=== PATIENT | male | born 1985 | race Caucasian/White ===

== ENCOUNTER 2017-04-26 17:41 | Emergency (ER) | payer OTHER ==
[2017-04-26 19:33] LABS: Hematocrit 41 % (42-52); Hemoglobin 14.6 g/dl (14.0-18.0); Mean Corpuscular HGB Conc 35 g/dl (31-36); Mean Corpuscular Hemoglobin 32 pg (27-31); Mean Corpuscular Volume 90 fL (80-94); Mean Platelet Volume 7 um3 (7.4-10.4); Red Blood Count 4.62 10^6/ul (4.0-5.4); Red Cell Distribution Width 13 % (10.5-15); White Blood Count 12.1 10^3/ul (3.5-10.8)
[2017-04-26 19:45] LABS: Albumin 4.4 g/dL (3.2-5.2); Calcium 9.2 mg/dL (8.6-10.3); EGFR African American 121.1 (>60); EGFR Non-African American 94.2 (>60); Globulin 3.1 g/dL (2-4); Total Bilirubin 1.6 mg/dL (0.2-1.0); Total Protein 7.5 g/dL (6.4-8.9)
[2017-04-26 19:56] LABS: Urine Bacteria Absent (Absent); Urine Bilirubin Negative (Negative); Urine Glucose Negative (Negative); Urine Nitrite Negative (Negative)
[2017-04-26] MEDS ORDERED: NS 0.9% 1000 ML* 2,000 ML IV ONE (20:24)
[2017-04-26] MEDS ORDERED: Ketorolac INJ* 30 MG/ML 1 ML VIAL IV PUSH ONE (20:24)
--- NOTE | 2017-04-26 20:31 | ED ---
Abdominal Pain/Male - HPI Summary HPI Summary: 31 male presents to ED with complaints of LLQ abdominal pain that began yesterday and has not improved. Patient states over the weekend he was having URI symptoms that have improved for the most part however began having LLQ pain , nausea, and vomiting yesterday. Admits to fever/chills. Describes pain to be sharp and shooting, worse at times. States it does radiate into his back. Denies diarrhea, constipation. Normal bowel movements. No urinary or genitalia symptoms. No concern for STDs. No PMHX. Did take etta seltzer 2 days ago. Has not taken any medications since. States applying pressure on side when laying down helps diminish the pain somewhat. No other complaints. Denies chest pain and difficulty breathing. Has been eating and drinking. Never had pain like this before. Denies FHx. - History of Current Complaint Chief Complaint: EDAbdPain Stated Complaint: NAUSEA/ABD AND BACK PAIN Time Seen by Provider: 04/26/17 17:52 Hx Obtained From: Patient Onset/Duration: Sudden Onset, Lasting Days, Still Present, Worse Since Timing: Constant - worse at times Severity Initially: Moderate Severity Currently: Mild Pain Intensity: 4 Pain Scale Used: 0-10 Numeric Location: Discrete At: LLQ Radiates to: Back, Other - umbilical area Character: Sharp - shooting/stabbing Aggravating Factor(s): Nothing Alleviating Factor(s): Nothing, Position Associated Signs And Symptoms: Positive: Fever, Back Pain, Nausea, Vomiting. Negative: Constipation, Blood in Stool, Urinary Symptoms, Decreased Appetite, Diarrhea - Allergies/Home Medications Allergies/Adverse Reactions: Allergies Allergy/AdvReac Type Severity Reaction Status Date / Time No Known Allergies Allergy Verified 05/27/14 17:15 PMH/Surg Hx/FS Hx/Imm Hx Endocrine/Hematology History: Denies: Hx Diabetes Cardiovascular History: Denies: Hx Hypertension Respiratory History: Denies: Hx Asthma - Surgical History Surgery Procedure, Year, and Place: n/a - Immunization History Immunizations Up to Date: Yes Infectious Disease History: No Infectious Disease History: Denies: Hx Clostridium Difficile, Hx Hepatitis, Hx Human Immunodeficiency Virus (HIV), Hx of Known/Suspected MRSA, Hx Shingles, Hx Tuberculosis, Hx Known/ Suspected VRE, Hx Known/Suspected VRSA, History Other Infectious Disease, Traveled Outside the [place] in Last 30 Days - Family History Known Family History: Positive: None - Social History Alcohol Use: Weekly Alcohol Amount: weekends Substance Use Type: Reports: None Smoking Status (MU): Former Smoker Type: Cigarettes Length of Time of Smoking/Using Tobacco: 1 year Have You Smoked in the Last Year: No Review of Systems Positive: Fever, Chills, Fatigue Cardiovascular: Negative Respiratory: Negative Positive: Abdominal Pain, Vomiting, Nausea All Other Systems Reviewed And Are Negative: Yes Physical Exam Triage Information Reviewed: Yes Vital Signs On Initial Exam: Initial Vitals Temp Pulse Resp BP Pulse Ox 97.3 F 88 17 119/68 98 04/26/17 17:46 04/26/17 17:46 04/26/17 17:46 04/26/17 17:46 04/26/17 17:46 Vital Signs Reviewed: Yes Appearance: Positive: Well-Appearing, Well-Nourished, Pain Distress - mild to moderate holding left side Skin: Positive: Warm, Skin Color Reflects Adequate Perfusion, Dry. Negative: Cold, Numb, Cyanosis @, Pale, Erythema @ Head/Face: Positive: Normal Head/Face Inspection Eyes: Positive: Conjunctiva Clear ENT: Positive: Hearing grossly normal, Pharynx normal Neck: Positive: Supple, Nontender, No Lymphadenopathy Respiratory/Lung Sounds: Positive: Clear to Auscultation, Breath Sounds Present. Negative: Rales, Rhonchi, Wheezes Cardiovascular: Positive: Normal, RRR, Pulses are Symmetrical in both Upper and Lower Extremities. Negative: Murmur, Rub Abdomen Description: Positive: Soft, CVA Tenderness (L), Guarding, Other: - tender to palpation at suprapubic/umbilical and LLQ region. negative rovsing, rebound psoas and murphys. Negative: Bruit, CVA Tenderness (R), Distended, McBurney's Point Tenderness, Peritoneal Signs, Pulsatile Mass Bowel Sounds: Positive: Present, Hypoactive Male Genital Exam: Positive: normal genitalia - per patient, deferred exam and rectal Musculoskeletal: Positive: Normal, Strength/ROM Intact. Negative: Abnormal @, Pain @ Neurological: Positive: Normal, Sensory/Motor Intact, Alert, Oriented to Person Place, Time, CN Intact II-III, Reflexes Intact, NV Bundle Intact Distally, Normal Gait Diagnostics - Vital Signs Vital Signs Temp Pulse Resp BP Pulse Ox 04/26/17 19:16 98.6 F 89 18 120/74 100 04/26/17 17:46 97.3 F 88 17 119/68 98 - Laboratory Lab Results: Lab Results 04/26/17 04/26/17 04/26/17 Range/Units 19:16 19:16 19:37 WBC 12.1 H (3.5-10.8) 10^3/ul RBC 4.62 (4.0-5.4) 10^6/ul Hgb 14.6 (14.0-18.0) g/dl Hct 41 L (42-52) % MCV 90 (80-94) fL MCH 32 H (27-31) pg MCHC 35 (31-36) g/dl RDW 13 (10.5-15) % Plt Count 203 (150-450) 10^3/ul MPV 7 L (7.4-10.4) um3 Neut % (Auto) 78.6 (38-83) % Lymph % (Auto) 13.3 L (25-47) % [place] % (Auto) 7.2 (1-9) % Eos % (Auto) 0.4 (0-6) % Baso % (Auto) 0.5 (0-2) % Absolute Neuts (auto) 9.5 H (1.5-7.7) 10^3/ul Absolute Lymphs (auto) 1.6 (1.0-4.8) 10^3/ul Absolute Monos (auto) 0.9 H (0-0.8) 10^3/ul Absolute Eos (auto) 0.1 (0-0.6) 10^3/ul Absolute Basos (auto) 0.1 (0-0.2) 10^3/ul Absolute Nucleated RBC 0 10^3/ul Nucleated RBC % 0 Sodium 134 (133-145) mmol/L Potassium 4.0 (3.5-5.0) mmol/L Chloride 100 L (101-111) mmol/L Carbon Dioxide 30 (22-32) mmol/L Anion Gap 4 (2-11) mmol/L BUN 13 (6-24) mg/dL Creatinine 0.93 (0.67-1.17) mg/dL Est GFR ( Amer) 121.1 (>60) Est GFR (Non-Af Amer) 94.2 (>60) BUN/Creatinine Ratio 14.0 (8-20) Glucose 128 H (70-100) mg/dL Calcium 9.2 (8.6-10.3) mg/dL Total Bilirubin 1.60 H (0.2-1.0) mg/dL AST 15 (13-39) U/L ALT 16 (7-52) U/L Alkaline Phosphatase 52 (34-104) U/L C-React Prot High Sens 106.87 mg/L Total Protein 7.5 (6.4-8.9) g/dL Albumin 4.4 (3.2-5.2) g/dL Globulin 3.1 (2-4) g/dL Albumin/Globulin Ratio 1.4 (1-3) Lipase 14 (11.0-82.0) U/L Urine Color Yellow Urine Appearance Clear Urine pH 6.0 (5-9) Ur Specific [place] 1.019 (1.010-1.030) Urine Protein Negative (Negative) Urine Ketones Trace H (Negative) Urine Blood 1+ H (Negative) Urine Nitrate Negative (Negative) Urine Bilirubin Negative (Negative) Urine Urobilinogen Negative (Negative) Ur Leukocyte Esterase Negative (Negative) Urine WBC (Auto) Trace(0-5/hpf) (Absent) Urine RBC (Auto) Trace(0-2/hpf) (Absent) Urine Bacteria Absent (Absent) Urine Glucose Negative (Negative) Result Diagrams: 04/26/17 19:16 04/26/17 19:16 Lab Statement: Any lab studies that have been ordered have been reviewed, and results considered in the medical decision making process. - CT CT abd/pelvis CT Interpretation: Positive (See Comments) - inflamed sigmoid diverticula and sigmoid colon wall thickening and haziness of the surround fat. a focus of gastrointestinal contrast density adjacent to the thickened bowel wall liekely reflects a small amount of contrast within a thickened diverticulum. there is no extraluminal gas or fluid CT Interpretation Completed By: Radiologist - and myself Re-Evaluation - Re-Evaluation First Eval Re-Evaluation Time: 21:54 Change: Improved - had some relief after toradol, waiting for CT Second Eval Re-Evaluation Time: 23:58 Change: Improved - still feeling better, updated on CT results, all questions answered, patient will be d/c Abdominal Pain Fem Course/Dx - Course Course Of Treatment: given fluids and toradol for pain. had relief. labs and urinalysis obtained. Elevated CRP and slightlye elevated WBC. Rest of labs unremarkable. Trace blood in urinalysis. Due to PE findings, complaints, HPI and lab findings obtained CT in concern for diverticulitis. CT showed diverticulitis. No concern for abscess or other etiology. Rest of CT exam unremarkable. given first dose of cipro/flagyl while in ED. Continue at home, fluids, bowel rest, diverticulitis diet and follow up. Aware of worsening signs and symptoms. Patient agrees and understands. - Diagnoses Differential Diagnosis/HQI/PQRI: Constipation, Diverticulitis, Renal Colic, Urinary Tract Infection Provider Diagnoses: Diverticulitis Discharge - Discharge Plan Condition: Stable Disposition: HOME Prescriptions: Ciprofloxacin TAB* [Cipro 500 MG TAB*] 500 mg PO BID #19 tab Metronidazole [Flagyl 500 MG TAB] 500 mg PO TID #29 tab Patient Education Materials: Ciprofloxacin (By mouth), Metronidazole (By mouth) , Diverticulitis (ED), Diverticulitis Diet (ED) Referrals: Tello Valladares MD [Primary Care Provider] - [facility] [place] [facility] [[place]] Anatoliy Lawrence MD [Medical Doctor] - Additional Instructions: Take medication as prescribed until entire dose is finished. Recommend taking probiotics daily as well, in between antibiotic doses, and even after taking medication. And/OR eating [place]ese yogurt. Increase fluid intake and eat high fiber diet. Avoid seeds, nuts etc, look at attached diverticulitis diet. Ibuprofen/tylenol for pain. Follow up with PCP. Any new or worsening signs/symptoms please seek medical attention immediately, as discussed.
[2017-04-26] MEDS ORDERED: Iohexol 300* (CONTRAST) 10 ML SDV IV ONE (22:44)
[2017-04-26] MEDS ORDERED: Ciprofloxacin TAB* 500 MG PO ONE (23:50)
[2017-04-26] MEDS ORDERED: metroNIDAZOLE TAB* 250 MG PO ONE (23:51)
[2017-04-27 00:18] VITALS: BP 104/66
--- NOTE | 2017-04-27 08:07 | RAD ---
CLINICAL HISTORY: Left lower quadrant pain COMPARISON: None TECHNIQUE: Contrast enhanced CT examination of the abdomen and pelvis from the lung bases through the initial tuberosities. The patient received 133 mL Omnipaque 300 intravenously prior to imaging.The patient received oral contrast as well prior to imaging. FINDINGS: VISUALIZED LUNG BASES: The visualized lung bases are grossly clear. There is no pleural effusion. ABDOMEN AND PELVIS: The liver, pancreas and adrenal glands are grossly normal in appearance. The spleen is enlarged measuring 15.2 cm in greatest axial dimension. The gallbladder is normal. The kidneys are normal in appearance without focal mass, calcification or signs of hydronephrosis. The oral contrast has progressed as far as the rectum. The normal contrast-filled appendix measures 5 mm in diameter (axial image 58). The small and large bowel are not distended. At the junction of the descending and sigmoid colon there is a short segment of bowel exhibiting wall thickening with pericolonic inflammatory change. There is at least one diverticulum in the vicinity. There is no gross retroperitoneal or mesenteric lymphadenopathy. The pelvic viscera is normal in appearance. The abdominal aorta and iliac arteries are normal in course and diameter. Mild degenerative changes are noted at L5/S1 including loss of intervertebral disc height.There are no sinister bone lesions. IMPRESSION: 1. CT findings are most consistent with sigmoid diverticulitis. If the patient's symptoms persist repeat imaging with CT or direct visualization may be appropriate to rule out a neoplastic process. 2. Splenomegaly.
== END 2017-04-27 00:17 | disposition home or self-care (01) ==
LOC: ED 17:41
DX: K57.92 Diverticulitis of intestine, part unspecified, without perforation or abscess without bleeding (principal); R10.32 Left lower quadrant pain; R50.9 Fever, unspecified; M54.9 Dorsalgia, unspecified; Z87.891 Personal history of nicotine dependence
CPT/HCPCS: 36415; 74177; 80053; 81003; 81015; 83690; 85025; 86141; 99283; A9270-GY; J1885; Q9967